=== PATIENT | female | born 1950 | race Caucasian/White ===

== ENCOUNTER 2021-05-09 16:02 | Inpatient (IN) | payer MEDICARE, BC ==
[~2021-05-09] VITALS: Ht 152.4 cm; Wt 44.9 kg
[2021-05-09] MEDS ORDERED: MELO-105 PO (16:16)
[2021-05-09] MEDS ORDERED: GABA100C PO (16:16)
[2021-05-09] MEDS ORDERED: TRAZ-257 PO (16:16)
[2021-05-09] MEDS ORDERED: OXYB5TAB16 PO (16:16)
[2021-05-09] MEDS ORDERED: SULF1TAB48 PO (16:16)
[2021-05-09] MEDS ORDERED: CHOL-9 PO (16:16)
[2021-05-09] MEDS ORDERED: AMIT75TA2 PO (16:16)
[2021-05-09] MEDS ORDERED: OXYC-133 PO (16:16)
[2021-05-09] MEDS ORDERED: DOCU-159 PO (16:16)
[2021-05-09] MEDS ORDERED: CLON1TAB12 PO (16:16)
[2021-05-09] MEDS ORDERED: LACT1CAP71 PO (16:16)
[2021-05-09] MEDS ORDERED: DULO60CA45 PO (16:16)
[2021-05-09] MEDS ORDERED: BACL10TA PO (16:16)
[2021-05-09] MEDS ORDERED: LACTULOSE (16:16)
--- NOTE | 2021-05-09 18:54 | NUR ---
ASSUMED CARE OF PATIENT. THIS PATIENT HAS ALREADY BEEN CLEARED FOR MHU ADMIT AND REPORT WAS GIVEN BY ELI SOLIS. PATIENT AWAITING TO BE TRANSPORTED TO MHU AT 1915
--- NOTE | 2021-05-09 19:09 | NUR ---
Pt. admitted to MHU , under care of Dr. Luu. Belongs List completed
[2021-05-09 19:25] VITALS: BP 163/76
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
[2021-05-09] MEDS ORDERED: MAGNESIUM HYDROXIDE 30 ML LIQUID UDC PO PRN (20:15)
[2021-05-09] MEDS ORDERED: MELOXICAM 7.5 MG TABLET PO SCH (21:15)
[2021-05-09] MEDS: ACETAMINOPHEN 325 MG TABLET PO PRN (21:29)
[2021-05-09] MEDS: TEMAZEPAM 7.5 MG CAPSULE PO PRN (21:29)
[2021-05-09] MEDS: OXYCODONE/APAP 5-325 MG TABLET PO PRN (23:53)
--- NOTE | 2021-05-10 05:29 | NUR ---
The patient was up most of the night despite receiving medication for sleep and pain. This patient is needy and has multiple requests. This ticket writer continues to provide reassurance and to provide a safe environment.
[2021-05-10] MEDS: OXYCODONE/APAP 5-325 MG TABLET PO PRN ×3 (05:55→20:40)
[2021-05-10 07:30] VITALS: BP 150/70
[2021-05-10 07:48] LABS: MEAN CORPUSCULAR HEMOGLOBIN 31.6 uug (24.7-32.8); MEAN CORPUSCULAR VOLUME 97.4 fL (75.5-95.3); PLATELET COUNT (AUTO) 309 K/uL (179-408)
[2021-05-10 08:04] LABS: THYROID STIMULATING HORMONE 2.79 mIU/mL (0.358-3.740)
[2021-05-10 08:21] LABS: BILIRUBIN,TOTAL 0.3 mg/dL (0.2-1.0); MAGNESIUM 2.5 mg/dL (1.8-2.4); PHOSPHOROUS 3.2 mg/dL (2.5-4.9); POTASSIUM 5.3 mmol/L (3.5-5.1); TOTAL PROTEIN, SERUM 8.1 g/dL (6.4-8.2)
[2021-05-10] MEDS: BACLOFEN 10 MG TABLET PO SCH ×2 (09:00→16:18)
[2021-05-10] MEDS: DOCUSATE SODIUM 100 MG CAPSULE PO SCH ×2 (09:00→16:18)
[2021-05-10] MEDS: GABAPENTIN 100 MG CAPSULE PO SCH ×3 (09:40→16:33)
[2021-05-10] MEDS: SULFAMETH/TRIMETH 800/160 MG TABLET PO SCH ×2 (09:40→16:33)
[2021-05-10] MEDS: CHOLECALCIFEROL 1,000 UNIT TABLET PO SCH (09:40)
--- NOTE | 2021-05-10 11:51 | NUR ---
Firearms Report: Welding Process Engineer completed and submitted a [employer] firearms report for 5150 grave disability certifications. A copy of report has been placed in patient chart.
--- NOTE | 2021-05-10 11:51 | NUR ---
[facility] Family Contact: SW left a voicemail for patient's James ([phone]) to discuss treatment and discharge plan.
--- NOTE | 2021-05-10 12:18 | NUR ---
[facility] Initial Discharge Plan: Patient resides at [place] [address] [place] [address]. Patient would like to return home upon discharge. Pts James Garcia ([phone]) is involved in her care. [facility] will continue to work with patient, family, and MD to ensure a safe and proper discharge plan.
[2021-05-10] MEDS: CULTURELLE CAPSULE PO SCH (12:27)
[2021-05-10] MEDS: OXYBUTYNIN CHLORIDE 5 MG TABLET PO SCH ×2 (12:27→16:35)
--- NOTE | 2021-05-10 16:19 | NUR ---
Gps/Narcotics And Vice Detective- Per patient she never take baclofen after reviewed with patient, Charissa TROTTER was informed when she came to see patient this pm,, verbal order received ok to dc. baclofen
--- NOTE | 2021-05-10 16:36 | NUR ---
Gps/Internet Merchant- Seen and observed patient wearing gloves, discouraged patient from using it, encouraged to wash hand wit soap and water, patient claimed she has problem with her immune system. , proper handwashing encouraged
[2021-05-10 16:55] VITALS: BP 151/65
[2021-05-10 20:09] VITALS: BP 148/64
[2021-05-10] MEDS: DULOXETINE 60 MG CAPSULE.DR PO SCH (20:38)
[2021-05-10] MEDS: AMITRIPTYLINE HCL 50 MG TABLET PO SCH (20:38)
[2021-05-10] MEDS: MELOXICAM 7.5 MG TABLET PO PRN (20:39)
[2021-05-11] MEDS: TEMAZEPAM 7.5 MG CAPSULE PO PRN ×2 (01:11→22:48)
[2021-05-11] MEDS: OXYCODONE/APAP 5-325 MG TABLET PO PRN ×2 (05:31→21:53)
--- NOTE | 2021-05-11 06:00 | NUR ---
Patient slept only 4.15 hours last night despite receiving a sleeping medication. This typewriter mechanic assisted the patient to the bathroom multiple times during the night. At one point the patient shouted out for this typewriter mechanic by name. When I went to the room ,,the patient was crying one minute, and laughing the next. Patient stated " I do not know what to do. I am unable to turn off my negative thoughts!". This typewriter mechanic assisted the patient with some deep breathing and mindful exercises. Also helped patient focus on positive things and provided reassurance. This seemed to be effective. The patient was medicated for pain a couple times throughout the night and was continually monitored for safety. No aggressive behavior noted. the patient as mostly labile and tangental in speech. Frequent rounding was done.
[2021-05-11 07:27] LABS: CREATININE 0.8 mg/dL (0.6-1.3)
[2021-05-11 07:40] VITALS: BP 136/76
[2021-05-11] MEDS: SULFAMETH/TRIMETH 800/160 MG TABLET PO SCH (08:03)
[2021-05-11] MEDS: CHOLECALCIFEROL 1,000 UNIT TABLET PO SCH (08:03)
[2021-05-11] MEDS: CULTURELLE CAPSULE PO SCH (08:03)
[2021-05-11] MEDS: DOCUSATE SODIUM 100 MG CAPSULE PO SCH ×2 (08:04→16:08)
[2021-05-11] MEDS: GABAPENTIN 100 MG CAPSULE PO SCH ×3 (08:04→16:14)
[2021-05-11] MEDS: OXYBUTYNIN CHLORIDE 5 MG TABLET PO SCH ×2 (08:04→16:08)
[2021-05-11] MEDS: ENSURE ENLIVE (VAN) 240 ML LIQUID PO SCH ×2 (09:00→17:00)
--- NOTE | 2021-05-11 13:57 | NUR ---
Gps/Shirring Tender- Jaleel HARNESS TIER in to see patient informed of todays 'labs., as well as results of urine culture that was faxed by [facility] from [facility] , as well as sensitivities , will review results per Jaleel HARNESS TIER. . Patient had been in and out of her activity group. Complained of upset stomach acidic as she stated, requested milk. Ambulates around with front wheel walker , interacting with her selected peers. .
[2021-05-11] MEDS: MAG HYDROX/AL HYDROX/SIMETH 30 ML LIQUID UDC PO PRN (14:19)
--- NOTE | 2021-05-11 14:50 | NUR ---
Gps/Pediatric Physician- Charissa CARVER HAND in to see patient aware of labs. as well as urine culture results from [facility].
[2021-05-11 16:01] VITALS: BP 149/68
[2021-05-11] MEDS: NITROFURANTOIN/NITROFURAN MAC 100 MG CAPSULE PO SCH ×2 (16:14→23:02)
--- NOTE | 2021-05-11 16:30 | NUR ---
Gps/Tufting Machine Operator Single Needle- Explained to patient she will be started w/ her oral abx of macrobid cap. for her UTI. in reflection to faxed results , ordered by Charissa ALVARES. Will continue to monitor labs.
[2021-05-11 19:51] VITALS: BP 146/71
[2021-05-11] MEDS: DULOXETINE 60 MG CAPSULE.DR PO SCH (20:26)
[2021-05-11] MEDS: AMITRIPTYLINE HCL 50 MG TABLET PO SCH (20:26)
[2021-05-12] MEDS: OXYCODONE/APAP 5-325 MG TABLET PO PRN ×3 (05:55→22:05)
[2021-05-12] MEDS: CHOLECALCIFEROL 1,000 UNIT TABLET PO SCH (08:11)
[2021-05-12] MEDS: GABAPENTIN 100 MG CAPSULE PO SCH ×3 (08:11→18:04)
[2021-05-12] MEDS: NITROFURANTOIN/NITROFURAN MAC 100 MG CAPSULE PO SCH ×2 (08:11→20:50)
[2021-05-12] MEDS: CULTURELLE CAPSULE PO SCH (08:11)
[2021-05-12] MEDS: OXYBUTYNIN CHLORIDE 5 MG TABLET PO SCH ×2 (08:11→17:00)
[2021-05-12 08:12] VITALS: BP 121/64
[2021-05-12] MEDS: DOCUSATE SODIUM 100 MG CAPSULE PO SCH ×2 (08:12→17:00)
[2021-05-12] MEDS: ENSURE ENLIVE (VAN) 240 ML LIQUID PO SCH ×2 (08:17→17:00)
[2021-05-12 08:52] LABS: CREATININE 0.8 mg/dL (0.6-1.3); MAGNESIUM 2.1 mg/dL (1.8-2.4); PHOSPHOROUS 3.2 mg/dL (2.5-4.9); POTASSIUM 4.5 mmol/L (3.5-5.1)
[2021-05-12 08:58] LABS: THYROID STIMULATING HORMONE 2.215 mIU/mL (0.358-3.740)
[2021-05-12 09:15] LABS: URIC ACID 2.4 mg/dL (2.6-6.0)
--- NOTE | 2021-05-12 11:11 | NUR ---
Gps/Cathleen- Jaleel Espinosa APPAREL CUTTER in to see patient, reviewed labs. from this am, will continue to monitor labs , fluid restrictions in progress, patient was well informed , but not happy of the restrictions . Loose stools per patient this am, not observed, but per pt. having on and off disrrhrea for many years /pt.
[2021-05-12] MEDS: MAG HYDROX/AL HYDROX/SIMETH 30 ML LIQUID UDC PO PRN (12:11)
--- NOTE | 2021-05-12 12:49 | NUR ---
Gps/[facility]- Unable to eat lunch, crackers and Patient had episo chicken broth was give, as requested , reviewed her fluid restrictions, verbalized understanding. Patient had crying spells , reassured.
[2021-05-12 16:42] VITALS: BP 130/56
[2021-05-12] MEDS: ACETAMINOPHEN 325 MG TABLET PO PRN (18:04)
[2021-05-12 19:53] VITALS: BP 115/51
[2021-05-12] MEDS: DULOXETINE 60 MG CAPSULE.DR PO SCH (20:46)
[2021-05-12] MEDS: AMITRIPTYLINE HCL 50 MG TABLET PO SCH (20:47)
[2021-05-12] MEDS: TEMAZEPAM 7.5 MG CAPSULE PO PRN (23:14)
[2021-05-13 07:30] VITALS: BP 135/75
[2021-05-13 07:52] LABS: HEMATOCRIT 39.8 % (31.2-41.9); MEAN CORPUSCULAR HEMOGLOBIN 31.4 uug (24.7-32.8); MEAN CORPUSCULAR VOLUME 96.8 fL (75.5-95.3); PLATELET COUNT (AUTO) 294 K/uL (179-408)
[2021-05-13 08:04] LABS: CREATININE 0.9 mg/dL (0.6-1.3); POTASSIUM 4.8 mmol/L (3.5-5.1)
[2021-05-13] MEDS: CULTURELLE CAPSULE PO SCH (08:38)
[2021-05-13] MEDS: CHOLECALCIFEROL 1,000 UNIT TABLET PO SCH (08:39)
[2021-05-13] MEDS: NITROFURANTOIN/NITROFURAN MAC 100 MG CAPSULE PO SCH ×2 (08:39→20:07)
[2021-05-13] MEDS: OXYBUTYNIN CHLORIDE 5 MG TABLET PO SCH ×2 (08:39→16:33)
[2021-05-13] MEDS: OXYCODONE/APAP 5-325 MG TABLET PO PRN (08:39)
[2021-05-13] MEDS: DOCUSATE SODIUM 100 MG CAPSULE PO SCH ×2 (08:40→16:33)
[2021-05-13] MEDS: GABAPENTIN 100 MG CAPSULE PO SCH ×3 (08:40→16:33)
[2021-05-13] MEDS: ENSURE ENLIVE (VAN) 240 ML LIQUID PO SCH ×2 (08:40→16:33)
[2021-05-13] MEDS ORDERED: NICOTINE 14 MG/24HR PATCH TD SCH (09:30)
[2021-05-13] MEDS: MAG HYDROX/AL HYDROX/SIMETH 30 ML LIQUID UDC PO PRN (10:12)
--- NOTE | 2021-05-13 11:26 | NUR ---
SW Family Contact: This SW attempted to contact patient's at [phone]) ([phone]) and was unavailable at this time. SW left a detailed voicemail.
[2021-05-13] MEDS: MELOXICAM 7.5 MG TABLET PO PRN (13:18)
--- NOTE | 2021-05-13 13:35 | NUR ---
SW Family Contact: This SW spoke with patient's ([phone]) and he stated that pt receives home health at home and wants pt back home upon discharge.
[2021-05-13 15:22] VITALS: BP 108/49
[2021-05-13 19:59] VITALS: BP 143/62
[2021-05-13] MEDS: DULOXETINE 60 MG CAPSULE.DR PO SCH (20:07)
[2021-05-13] MEDS: AMITRIPTYLINE HCL 50 MG TABLET PO SCH (20:07)
[2021-05-13] MEDS: TEMAZEPAM 7.5 MG CAPSULE PO PRN (23:17)
[2021-05-14] MEDS: OXYCODONE/APAP 5-325 MG TABLET PO PRN ×2 (00:23→17:51)
[2021-05-14] MEDS: LORAZEPAM 0.5 MG TABLET PO PRN ×2 (00:23→23:07)
[2021-05-14 07:30] VITALS: BP 130/70
[2021-05-14] MEDS: CULTURELLE CAPSULE PO SCH (08:29)
[2021-05-14] MEDS: GABAPENTIN 100 MG CAPSULE PO SCH ×3 (08:29→17:51)
[2021-05-14] MEDS: NITROFURANTOIN/NITROFURAN MAC 100 MG CAPSULE PO SCH ×2 (08:29→20:41)
[2021-05-14] MEDS: CHOLECALCIFEROL 1,000 UNIT TABLET PO SCH (08:29)
[2021-05-14] MEDS: MELOXICAM 7.5 MG TABLET PO PRN (08:29)
[2021-05-14] MEDS: OXYBUTYNIN CHLORIDE 5 MG TABLET PO SCH ×2 (08:29→17:00)
[2021-05-14] MEDS: ENSURE ENLIVE (VAN) 240 ML LIQUID PO SCH ×2 (08:29→17:52)
[2021-05-14] MEDS: DOCUSATE SODIUM 100 MG CAPSULE PO SCH ×2 (08:30→17:00)
[2021-05-14] MEDS: MAG HYDROX/AL HYDROX/SIMETH 30 ML LIQUID UDC PO PRN (09:33)
--- NOTE | 2021-05-14 11:32 | NUR ---
[facility] PC Hearing: Patient had 5250 probable cause hearing today and it was upheld for grave disability.
[2021-05-14 15:29] VITALS: BP 133/67
[2021-05-14 20:12] VITALS: BP 154/61
[2021-05-14] MEDS: AMITRIPTYLINE HCL 50 MG TABLET PO SCH (20:41)
[2021-05-14] MEDS: TEMAZEPAM 7.5 MG CAPSULE PO PRN (20:41)
[2021-05-14] MEDS: ACETAMINOPHEN 325 MG TABLET PO PRN (20:41)
[2021-05-14] MEDS: DULOXETINE 60 MG CAPSULE.DR PO SCH (20:41)
[2021-05-15 07:30] VITALS: BP 142/68
--- NOTE | 2021-05-15 07:30 | NUR ---
Received report from IRMA Mace. All questions, comments, and concerns were addressed. Received patient resting quietly in her assigned bed. Bed is in low and locked position.
[2021-05-15] MEDS: OXYCODONE/APAP 5-325 MG TABLET PO PRN ×2 (08:15→16:08)
[2021-05-15] MEDS: NITROFURANTOIN/NITROFURAN MAC 100 MG CAPSULE PO SCH ×2 (08:15→20:03)
[2021-05-15] MEDS: GABAPENTIN 100 MG CAPSULE PO SCH ×3 (08:15→16:04)
[2021-05-15] MEDS: CHOLECALCIFEROL 1,000 UNIT TABLET PO SCH (08:15)
[2021-05-15] MEDS: CULTURELLE CAPSULE PO SCH (08:16)
[2021-05-15] MEDS: OXYBUTYNIN CHLORIDE 5 MG TABLET PO SCH ×2 (08:21→16:07)
[2021-05-15] MEDS: DOCUSATE SODIUM 100 MG CAPSULE PO SCH ×2 (08:21→16:03)
[2021-05-15] MEDS: ENSURE ENLIVE (VAN) 240 ML LIQUID PO SCH ×2 (08:48→17:59)
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
[2021-05-15 16:00] VITALS: BP 129/39
--- NOTE | 2021-05-15 17:12 | NUR ---
Patient is alert and oriented. She is anxious, restless, and labile in mood. Patient denies SI/HI, denies AH/VH. She is compliant with medication, no adverse reactions noted. Patient uses a FWW to ambulate. Able to perform self care and ADL's independently. Tolerates food and fluids well. Patient provided with education about impulse control and communicating needs to staff appropriately.
[2021-05-15] MEDS: AMITRIPTYLINE HCL 50 MG TABLET PO SCH (20:03)
[2021-05-15] MEDS: DULOXETINE 60 MG CAPSULE.DR PO SCH (20:04)
[2021-05-15 20:14] VITALS: BP 133/43
[2021-05-15] MEDS: TEMAZEPAM 7.5 MG CAPSULE PO PRN (21:00)
[2021-05-16] MEDS: ACETAMINOPHEN 325 MG TABLET PO PRN (01:57)
--- NOTE | 2021-05-16 02:51 | NUR ---
Patient hyperverbal, attention seeking, restless, poor insight and semi fair judgement. Interacts with staff and peers. Med compliant. Patient will remain in a psych facility for further evaluation and treatment.
[2021-05-16] MEDS: OXYCODONE/APAP 5-325 MG TABLET PO PRN ×3 (04:28→22:10)
[2021-05-16 07:30] VITALS: BP 128/54
[2021-05-16 07:32] LABS: POTASSIUM 5.5 mmol/L (3.5-5.1)
[2021-05-16 07:33] LABS: CREATININE 0.7 mg/dL (0.6-1.3)
[2021-05-16] MEDS: CHOLECALCIFEROL 1,000 UNIT TABLET PO SCH (07:57)
[2021-05-16] MEDS: OXYBUTYNIN CHLORIDE 5 MG TABLET PO SCH ×2 (07:57→16:57)
[2021-05-16] MEDS: NITROFURANTOIN/NITROFURAN MAC 100 MG CAPSULE PO SCH ×2 (07:57→21:36)
[2021-05-16] MEDS: GABAPENTIN 100 MG CAPSULE PO SCH ×3 (07:57→16:44)
[2021-05-16] MEDS: CULTURELLE CAPSULE PO SCH (07:57)
[2021-05-16] MEDS: DOCUSATE SODIUM 100 MG CAPSULE PO SCH ×2 (08:11→16:57)
[2021-05-16] MEDS: ENSURE ENLIVE (VAN) 240 ML LIQUID PO SCH ×2 (09:15→16:50)
--- NOTE | 2021-05-16 13:43 | NUR ---
Coordination of Care: Patient will be following up with her primary care physician Dr. Trista López [address], [place] [address] ([phone]) and has an appointment scheduled on 05/24/2021 at 9:30AM and will monitor and provide psychotropic medications and was scheduled through [employer] creative services producer.
[2021-05-16 15:55] VITALS: BP 127/49
[2021-05-16] MEDS ORDERED: SODIUM POLYSTYRENE SULFONATE 15 G/60 ML LIQUID UDC PO ONE (17:30)
[2021-05-16 20:00] VITALS: BP 141/63
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
[2021-05-16] MEDS: AMITRIPTYLINE HCL 50 MG TABLET PO SCH (21:36)
[2021-05-16] MEDS: DULOXETINE 60 MG CAPSULE.DR PO SCH (21:36)
[2021-05-16] MEDS: TEMAZEPAM 7.5 MG CAPSULE PO PRN (23:26)
[2021-05-17] MEDS: MELOXICAM 7.5 MG TABLET PO PRN (01:05)
[2021-05-17 07:30] VITALS: BP 145/73
[2021-05-17] MEDS: CULTURELLE CAPSULE PO SCH (08:21)
[2021-05-17] MEDS: NITROFURANTOIN/NITROFURAN MAC 100 MG CAPSULE PO SCH ×2 (08:21→21:02)
[2021-05-17] MEDS: GABAPENTIN 100 MG CAPSULE PO SCH ×3 (08:21→16:47)
[2021-05-17] MEDS: ENSURE ENLIVE (VAN) 240 ML LIQUID PO SCH ×2 (08:21→16:48)
[2021-05-17] MEDS: OXYBUTYNIN CHLORIDE 5 MG TABLET PO SCH ×2 (08:21→16:50)
[2021-05-17] MEDS: CHOLECALCIFEROL 1,000 UNIT TABLET PO SCH (08:21)
[2021-05-17] MEDS: DOCUSATE SODIUM 100 MG CAPSULE PO SCH ×2 (08:24→16:48)
[2021-05-17] MEDS: OXYCODONE/APAP 5-325 MG TABLET PO PRN ×3 (08:26→23:05)
[2021-05-17 09:28] LABS: HEMATOCRIT 40.6 % (31.2-41.9); MEAN CORPUSCULAR HEMOGLOBIN 32.2 uug (24.7-32.8); MEAN CORPUSCULAR VOLUME 99.1 fL (75.5-95.3); PLATELET COUNT (AUTO) 334 K/uL (179-408)
[2021-05-17 09:40] LABS: BILIRUBIN,TOTAL 0.3 mg/dL (0.2-1.0); CREATININE 0.8 mg/dL (0.6-1.3); MAGNESIUM 2.1 mg/dL (1.8-2.4); PHOSPHOROUS 3.2 mg/dL (2.5-4.9); POTASSIUM 4.7 mmol/L (3.5-5.1); TOTAL PROTEIN, SERUM 7.1 g/dL (6.4-8.2)
--- NOTE | 2021-05-17 10:08 | NUR ---
SW Family Contact: This SW spoke with patient's ([phone]) and discussed patient's discharge next week.
[2021-05-17 13:00] VITALS: BP 137/73
--- NOTE | 2021-05-17 14:07 | NUR ---
Patient endorse to IRMA Fernandez for continuity of care.
[2021-05-17 19:59] VITALS: BP 160/55
[2021-05-17] MEDS: DULOXETINE 60 MG CAPSULE.DR PO SCH (21:02)
[2021-05-17] MEDS: AMITRIPTYLINE HCL 50 MG TABLET PO SCH (21:09)
[2021-05-17] MEDS: TEMAZEPAM 7.5 MG CAPSULE PO PRN (22:18)
[2021-05-17] MEDS: MAG HYDROX/AL HYDROX/SIMETH 30 ML LIQUID UDC PO PRN (22:18)
[2021-05-18] MEDS: ACETAMINOPHEN 325 MG TABLET PO PRN (05:49)
[2021-05-18 07:46] VITALS: BP 132/64
[2021-05-18] MEDS: CHOLECALCIFEROL 1,000 UNIT TABLET PO SCH (08:04)
[2021-05-18] MEDS: OXYCODONE/APAP 5-325 MG TABLET PO PRN ×3 (08:04→21:51)
[2021-05-18] MEDS: CULTURELLE CAPSULE PO SCH (08:04)
[2021-05-18] MEDS: GABAPENTIN 100 MG CAPSULE PO SCH ×3 (08:04→16:00)
[2021-05-18] MEDS: OXYBUTYNIN CHLORIDE 5 MG TABLET PO SCH ×2 (08:05→16:01)
[2021-05-18] MEDS: ENSURE ENLIVE (VAN) 240 ML LIQUID PO SCH ×2 (08:05→16:01)
[2021-05-18] MEDS: DOCUSATE SODIUM 100 MG CAPSULE PO SCH ×2 (08:05→16:01)
[2021-05-18] MEDS: MAG HYDROX/AL HYDROX/SIMETH 30 ML LIQUID UDC PO PRN ×2 (15:57→21:51)
[2021-05-18 16:57] VITALS: BP 132/59
[2021-05-18 19:55] VITALS: BP 131/51
[2021-05-18] MEDS: DULOXETINE 60 MG CAPSULE.DR PO SCH (20:07)
[2021-05-18] MEDS: AMITRIPTYLINE HCL 50 MG TABLET PO SCH (20:08)
[2021-05-18] MEDS: MELOXICAM 7.5 MG TABLET PO PRN (20:09)
[2021-05-18] MEDS: TEMAZEPAM 7.5 MG CAPSULE PO PRN (22:26)
[2021-05-19] MEDS: MAG HYDROX/AL HYDROX/SIMETH 30 ML LIQUID UDC PO PRN ×3 (03:46→15:00)
[2021-05-19] MEDS: LORAZEPAM 0.5 MG TABLET PO PRN ×2 (03:46→21:37)
[2021-05-19 08:13] VITALS: BP 157/74
[2021-05-19] MEDS: OXYBUTYNIN CHLORIDE 5 MG TABLET PO SCH ×2 (08:13→16:14)
[2021-05-19] MEDS: DOCUSATE SODIUM 100 MG CAPSULE PO SCH ×2 (08:13→16:13)
[2021-05-19] MEDS: GABAPENTIN 100 MG CAPSULE PO SCH ×3 (08:13→16:14)
[2021-05-19] MEDS: CHOLECALCIFEROL 1,000 UNIT TABLET PO SCH (08:13)
[2021-05-19] MEDS: CULTURELLE CAPSULE PO SCH (08:13)
[2021-05-19] MEDS: ENSURE ENLIVE (VAN) 240 ML LIQUID PO SCH ×2 (08:14→16:15)
[2021-05-19] MEDS: OXYCODONE/APAP 5-325 MG TABLET PO PRN ×3 (08:26→20:47)
[2021-05-19 16:17] VITALS: BP 146/57
[2021-05-19 19:47] VITALS: BP 157/60
[2021-05-19] MEDS: DULOXETINE 60 MG CAPSULE.DR PO SCH (20:47)
[2021-05-19] MEDS: AMITRIPTYLINE HCL 50 MG TABLET PO SCH (20:47)
[2021-05-19] MEDS: MELOXICAM 7.5 MG TABLET PO PRN (21:38)
[2021-05-19] MEDS: TEMAZEPAM 7.5 MG CAPSULE PO PRN (22:29)
[2021-05-20] MEDS: MAG HYDROX/AL HYDROX/SIMETH 30 ML LIQUID UDC PO PRN ×4 (04:15→21:48)
[2021-05-20] MEDS: OXYCODONE/APAP 5-325 MG TABLET PO PRN ×3 (04:16→21:08)
--- NOTE | 2021-05-20 06:31 | NUR ---
The patient was up and down throughout the night asking for medication for pain and a sleeping pill. Patient claimed to be having runny, watery stools. Will endorse to the day shift for follow up Patient was emotionally labile at times but for the most part cooperative and pleasant. No SI or aggressive behavior. Patient slept 4.30 hours and is asleep and pain free at this time.Continuing to monitor for safety.
[2021-05-20 07:30] VITALS: BP 123/58
[2021-05-20] MEDS: DOCUSATE SODIUM 100 MG CAPSULE PO SCH ×2 (08:08→16:08)
[2021-05-20] MEDS: OXYBUTYNIN CHLORIDE 5 MG TABLET PO SCH ×2 (08:08→16:08)
[2021-05-20] MEDS: ENSURE ENLIVE (VAN) 240 ML LIQUID PO SCH ×2 (08:08→16:40)
[2021-05-20] MEDS: CHOLECALCIFEROL 1,000 UNIT TABLET PO SCH (08:09)
[2021-05-20] MEDS: CULTURELLE CAPSULE PO SCH (08:09)
[2021-05-20] MEDS: GABAPENTIN 100 MG CAPSULE PO SCH ×3 (08:09→15:48)
[2021-05-20 15:14] VITALS: BP 157/71
--- NOTE | 2021-05-20 18:46 | NUR ---
Received patient is alert and oriented x4 ,c/o abdominal pain and discomfort ,Maalox given as ordered.will continue close monitoring.
[2021-05-20 19:58] VITALS: BP 142/67
[2021-05-20] MEDS: DULOXETINE 60 MG CAPSULE.DR PO SCH (20:19)
[2021-05-20] MEDS: AMITRIPTYLINE HCL 50 MG TABLET PO SCH (20:19)
[2021-05-20] MEDS: TEMAZEPAM 7.5 MG CAPSULE PO PRN (22:17)
[2021-05-20] MEDS: LORAZEPAM 0.5 MG TABLET PO PRN (23:17)
[2021-05-21] MEDS: MAG HYDROX/AL HYDROX/SIMETH 30 ML LIQUID UDC PO PRN (06:18)
--- NOTE | 2021-05-21 06:44 | NUR ---
GPS: Pt. slept for 5.30 last night. Complaining of loose stools and upset stomach and requested Mylanta at this time. No N/V noted. Will endorse to incoming shift.
[2021-05-21 07:30] VITALS: BP 146/73
[2021-05-21] MEDS: GABAPENTIN 100 MG CAPSULE PO SCH (08:08)
[2021-05-21] MEDS: CULTURELLE CAPSULE PO SCH (08:08)
[2021-05-21] MEDS: OXYCODONE/APAP 5-325 MG TABLET PO PRN (08:08)
[2021-05-21] MEDS: CHOLECALCIFEROL 1,000 UNIT TABLET PO SCH (08:08)
[2021-05-21] MEDS: DOCUSATE SODIUM 100 MG CAPSULE PO SCH (08:09)
[2021-05-21] MEDS: OXYBUTYNIN CHLORIDE 5 MG TABLET PO SCH (08:09)
--- NOTE | 2021-05-21 08:09 | NUR ---
DISCHARGE NOTE: Patient will be discharged home [address] [place] [address]. Patient will be provided with Taxi transportation at 11AM and is given a taxi voucher. Patient , James ([phone]) is aware and agreeable with discharge plan. Patient is alert and oriented x4 and is aware and agreeable with discharge plan. Patient denies suicidal or homicidal ideation. Patient will be following up with her primary care physician Dr. Trista López [address], [place] [address] ([phone]) and has an appointment scheduled on 05/24/2021 at 9:30AM and will monitor and provide psychotropic medications. Patient will resume services with [facility] Maribel WebbDovray) (P: [phone]). Patient presented with euthymic mood and congruent
[2021-05-21] MEDS: ENSURE ENLIVE (VAN) 240 ML LIQUID PO SCH (08:10)
--- NOTE | 2021-05-21 12:20 | NUR ---
Patient discharged home today with .vital sign stable pain is managed by prn pain medication. Patient denies any suicidal or homicidal ideation. all personal belonging returned to patient .Patient will be following up with her primary care physician Dr. Trista López and has an appointment scheduled on 05/24/2021 at 9:30AM and will monitor and provide psychotropic medications.
== END 2021-05-21 12:38 | disposition home or self-care (01) | DRG 885 ==
LOC: ER 16:05 → GPS 18:55
PROVIDERS: ADMIT Psychiatry & Neurology Psychosomatic Medicine; ATTEND Nurse Practitioner Acute Care
DX: F33.3 Major depressive disorder, recurrent, severe with psychotic symptoms (principal); E43 Unspecified severe protein-calorie malnutrition; N18.9 Chronic kidney disease, unspecified; N39.0 Urinary tract infection, site not specified; E87.1 Hypo-osmolality and hyponatremia; B96.20 Unspecified Escherichia coli [E. coli] as the cause of diseases classified elsewhere; J44.9 Chronic obstructive pulmonary disease, unspecified; F09 Unspecified mental disorder due to known physiological condition; E87.5 Hyperkalemia; F41.9 Anxiety disorder, unspecified; I67.2 Cerebral atherosclerosis; G89.4 Chronic pain syndrome; M19.90 Unspecified osteoarthritis, unspecified site; M21.70 Unequal limb length (acquired), unspecified site; M81.0 Age-related osteoporosis without current pathological fracture; Z96.649 Presence of unspecified artificial hip joint; Z88.1 Allergy status to other antibiotic agents; Z88.0 Allergy status to penicillin; Z87.440 Personal history of urinary (tract) infections; R19.7 Diarrhea, unspecified
CPT/HCPCS: 36415; 70450; 83735; 83930; 83935; 84100; 84300; 84443; 84550; 85025; 97161